=== PATIENT | male | born 1975 | race Caucasian/White ===

== ENCOUNTER 2020-01-06 12:40 | Outpatient (CLI) | payer SELFPAY ==
--- NOTE | 2020-01-06 12:46 | CT_ITS ---
WS: [id number] CT CHEST WITH INTRAVENOUS CONTRAST HISTORY: COUGH TECHNIQUE: Contiguous 5 mm axial imaging performed on the thorax. Coronal and sagittal reformats are submitted. All CT scans at [facility] use at least one of these dose optimization techniq ues: automated exposure control; mA and/or kV adjustment per patient size (includes targeted exams wh ere dose is matched to clinical indication); or iterative reconstruction. CONTRAST: Omnipaque 300; 95 mL IV. DLP: 917.82 mGycm COMPARISON: None available. Lungs and central airway: Numerous bilateral pulmonary nodules. The largest nodule is subpleural kamran uring 7.3 mm in the RIGHT middle lobe. There are additional smaller nodules, majority of these along the fissures of the RIGHT lung. There are additional smaller nodules throughout the LEFT lung. Pleura: Normal. No pleural effusion. Heart and pericardium: Normal size heart. No pericardial effusion. Mediastinum and shobha: Bilateral hilar lymph nodes. There are several lymph nodes with the largest sherrell suring 11 mm at the RIGHT hilum. Vessels: Normal size aortic and pulmonary artery. No coronary artery calcifications. Chest wall and lower neck: No soft tissue masses. Upper abdomen: Small hiatal hernia. No adrenal mass. Visualized liver is clear. Nonobstructing calcif ication upper pole LEFT kidney. Osseous structures: No destructive bone lesions. CT/CT chest w con* [id number] IMPRESSION: 1. Bilateral multilobar subcentimeter pulmonary nodules. Largest measures 7.3 mm in the middle lobe. I suspect these are probably postinflammatory. Early met astatic disease needs to be considered. Recommend follow-up chest CT in 3 month s to document stability. If these nodules remain stable long-term imaging follo w-up will need to be performed. 2. Indeterminate bilateral hilar lymph nodes. These can also be followed up at the chest CT in 3 months.
[2020-01-06] MEDS: iohexol 300 mg/mL 100 mL Btl IV (13:55)
== END 2020-01-06 12:41 | disposition home or self-care (01) ==
LOC: RADWPI 12:43
PROVIDERS: Family Provider Family Medicine; PCP Internal Medicine; Visit Provider Internal Medicine
DX: R05 Cough (principal); R91.8 Other nonspecific abnormal finding of lung field
CPT/HCPCS: 71260; Q9967

== ENCOUNTER 2020-01-21 05:56 | Day surgery (SDC) | payer SELFPAY ==
[2020-01-20 11:08] VITALS: BMI 32.8
[2020-01-21] VITALS (9 sets, daily range): BP systolic 98–130; BP diastolic 61–90; PULSE 73–93; RESP 12–18; TEMP 36.3–37.1; O2SAT 94–99
[2020-01-21] MEDS: sodium chloride 0.9% 1,000 ML 30 ML IV (06:30)
--- NOTE | 2020-01-21 06:36 | ANES.PREANE2 ---
Pre-Anesthetic Assessment Pre-Anesthetic Assessment: Height/Weight: Height 1.7 m Weight 95.254 kg Temp Pulse Resp BP Pulse Ox 97.4 F L 86 18 128/90 94 01/21/20 06:09 01/21/20 06:09 01/21/20 06:09 01/21/20 06:09 01/21/20 06:09 Preop Diagnosis: Sarcoidosis Proposed Procedure: Operation Date: 01/21/20 07:00 Proposed Procedures p Bronchoscopy 77263 / D86.9(Not Applicable) - Doni Mao MD Familial anesthetic complications: None Was Beta [place] taken within 24 hours: N/A Last intake: NPO > 8 hrs Social: Social History: Tobacco (chews) and No alcohol Comment: former smoker Exam: Pre-Anes Outpt Exam: alert, oriented x 3, clear to auscultation bilaterally and regular rate & rhythm Airway: Cervical ROM: WNL MP: 4 Dentition: Full Pulmonary: Pulmonary: Sleep apnea (cpap (noncompliant)) Comments: sarcoidosis CV/HEM: CV/HEM: None reported : : None reported Hepatic: Hepatic: None reported GI: GI: GERD Metabolic: Metabolic: DM Musc/skel: Musc/skel: None reported Neuropsych: Neuropsych: None reported Anesthetic Plan: ASA status: 3 Anesthesia: MAC Risk of > 500 ml blood loss (7ml/kg in children): No PFSH Anesthesia PFSH: Medical History (Updated 01/13/20 @ 12:26 by Doni Mao MD) GERD (gastroesophageal reflux disease) Type 1 diabetes Surgical History (Updated 01/13/20 @ 12:16 by Doni Mao MD) History of appendectomy Hx of tonsillectomy Social History Smoking and tobacco status: current every day smoker smokeless tobacco Smokeless tobacco user: chewing tobacco Smokeless tobacco details: Quit smoking 1999 - 1PPD x 11 Years Quit status (tobacco): has quit using tobacco Alcohol intake: current Alcohol intake frequency: holidays/special occasions only Lives independently: Yes Household members: spouse Marital status: Current occupational status: employed Current occupation: [employer] History of recent travel: No Current gender identity: Male Data Anesthesia Cardiac Studies: No Data to Display
[2020-01-21 06:38] LABS: Glucose Point of Care 252 mg/dL (70-110)
[2020-01-21] MEDS: insulin regular-human 100 units/1 mL 5 UNIT IVP (06:46)
--- NOTE | 2020-01-21 06:56 | W.PM.OPSUD ---
Surgery/Procedure H&P Update DATE OF PROCEDURE: January 21, 2020 DATE H&P PERFORMED: 01/13/20 H&P UPDATE INFORMATION: I have reviewed H&P completed within last 30 days, I have examined patient prior to procedure and No changes to prior documentation PREOP DIAGNOSIS: Sarcoidosis PLANNED PROCEDURE: Bronchoscopy with inspection of the airway, bronchoalveolar lavage, possible endobronchial and transbronchial biopsies, endobronchial sound guided transbronchial needle aspiration of lymph nodes. Operation Date: 01/21/20 07:00 Proposed Procedures p Bronchoscopy 88829 / D86.9(Not Applicable) - Doni Mao MD
[2020-01-21] MEDS: lidocaine 1% INJ 20 mL XX (07:29)
--- NOTE | 2020-01-21 08:19 | P.OP_ITS ---
Operative Report Date of procedure: January 21, 2020 Pre-op Diagnosis: Sarcoidosis Pre-op Diagnosis: Mediastinal and hilar lymphadenopathy Brief History: 44-year-old gentleman with pulmonary nodule and mediastinal hilar lymphadenopathy coming in for bronchoscopy evaluation. Procedure: Name of the procedure: Bronchoscopy with inspection of the airway, bronchoalveolar lavage, endobronchial ultrasound-guided transbronchial needle aspiration of lymph nodes and control of bleeding. Indication: Pulmonary nodule in perilymphatic distribution and hilar and mediastinal lymphadenopathy. Anesthesia: General anesthesia. Local anesthesia: The asha in the right and left mainstem bronchi were anesthetized with 1% lidocaine, 3 mL. Description of the procedure: The procedure was explained to the patient and the consent was obtained. The patient was brought to the OR. The patient underwent endotracheal intubation for general anesthesia. Following induction of general anesthesia, the bronchoscope was advanced through the ET tube. The lower trachea appeared to be normal. The asha was sharp. The asha, the right and left mainstem bronchi are anesthetized with 1% lidocaine. In a systematic manner bilateral bronchial tree was then examined. The bronchoscope was advanced into the left mainstem bronchus. The left upper lobe, lingula and left lower lobe bronchi were examined up to the third subsegmental level and no abnormalities were identified. There is no endobronchial lesion, active bleeding or mucous plug. The bronchoscope was then introduced into the right mainstem bronchus. The right upper lobe, right middle lobe and right lower lobe bronchi were examined up to the third subsegmental level and no abnormalities were identified. There was mild airway erythema throughout the lung. Bronchoalveolar lavage was performed from the medial segment of the right middle lobe. 60 mL of saline was instilled, fluid return was 25 mL. The fluid was linette ar. The endobronchial ultrasound was introduced through the ET tube. Mediastinal and hilar lymphadenopathy was identified with the ultrasound. The lymph nodes showed no distinct cortex and Medela. Transbronchial needle aspiration was performed from 7, 10 R, 11 R lymph nodes. Samples: 1. Bronchoalveolar lavage specimen was sent for cell count and differential, Gram stain and culture, fungal stain and culture, AFB stain and culture. 2. The transbronchial needle aspiration of the aforementioned lymph node groups were sent for cytology. Complications: There was no immediate complications. The patient was extubated and brought to the PACU in stable condition. Follow-up: 1. Please follow-up with me in 2 weeks time.
--- NOTE | 2020-01-21 08:31 | SUR.PHASEI ---
PT RESTING QUIETLY ON RT SIDE PT ON RA , WITH GOOD RESP SLEEPS IF NOT DISTURBED , AWAKES AND MUMBLES BUT DOES NOT FOCUS ON SPEAKER, VSS.
--- NOTE | 2020-01-21 08:36 | SUR.OPER ---
ebus balloon removed intact.
[2020-01-21 08:51] LABS: Glucose Point of Care 168 mg/dL (70-110)
[2020-01-21] MEDS: cetylpyridinium Lozenge 1 EACH MUCOUS MEM (09:00)
[2020-01-21 09:35] LABS: Apprearance, Bronch Wash Hazy (CLEAR); Color, Bronc Wash Colorless
[2020-01-21 12:24] LABS: Bronch Source Right Middle Lobe; Total Cells Counted Bronch 200
== END 2020-01-21 09:45 | disposition home or self-care (01) ==
PROVIDERS: PCP Internal Medicine; Visit Provider Internal Medicine Critical Care Medicine
PROC: 0BJ08ZZ Inspection of Tracheobronchial Tree, Via Natural or Artificial Opening Endoscopic (ICD-10-PCS; CPT 31622; principal; 2020-01-21 07:00)
PROC: BB4BZZZ Ultrasonography of Pleura (ICD-10-PCS; CPT 31624; 2020-01-21 07:00)
DX: R91.1 Solitary pulmonary nodule (principal); Z87.891 Personal history of nicotine dependence; G47.30 Sleep apnea, unspecified; K21.9 Gastro-esophageal reflux disease without esophagitis; E10.9 Type 1 diabetes mellitus without complications; Z79.4 Long term (current) use of insulin
CPT/HCPCS: 31624; 31653; 12345; 36416; 80500; 82962; 87070; 87205; 88173; 88305; 89050; 96374; J0330; J1100; J1815; J2001; J2704; J2710; J3490; J7030